=== PATIENT | male | born 1975 | race Caucasian/White ===

== ENCOUNTER 2016-05-03 07:58 | Emergency (ER) | payer SELFPAY ==
--- NOTE | ~2016-05-03 | ER ---
PATIENT'S NAME: [facility]U [facility] AGE: 40 Y [address] ROOM: [place] [address] LOCATION: [facility] ADMIT DATE: 05/03/2016 ER/Outpatient Report DISCHARGE DATE: 05/03/2016 FAMILY PHYSICIAN: PHYSICIAN, NO ATTENDING PHYSICIAN: Valentino Lara Time of Arrival: 0758 hours. Time of Evaluation: 0810 hours. CHIEF COMPLAINT: Left lower quadrant abdominal pain. HISTORY OF PRESENT ILLNESS: The patient is a 40-year-old male, who presents to the emergency department today with chief complaint of left lower quadrant abdominal pain. He reports this started 2 days prior to arrival. He reports he does have a history of diverticulitis and this feels similar to his previous episodes. Denies any fevers or chills. Does have some nausea, no vomiting. He does have a little bit of diarrhea. No blood in his stool. No dark tarry stools. No urinary frequency, urgency, or painful urination. It is a sharp-type pain and currently mild in severity. PAST MEDICAL HISTORY: Diverticulosis. PAST SURGICAL HISTORY: Appendectomy and hernia. SOCIAL HISTORY: The patient smokes half pack per day. Drinks alcohol occasionally. Denies any illicit drug use. ALLERGIES: NO KNOWN DRUG ALLERGIES. MEDICATIONS: None. REVIEW OF SYSTEMS: All systems are reviewed by myself and are negative with the exception of those discussed in HPI and past medical history. PHYSICAL EXAMINATION: VITAL SIGNS: Weight 83.5 kg, blood pressure 145/94, pulse 96, respiratory rate 20, temperature 97, oxygen saturation 99% on room air. PATIENT'S NAME: [facility]U [facility] AGE: 40 Y [address] ROOM: [place] [address] LOCATION: [facility] ADMIT DATE: 05/03/2016 ER/Outpatient Report DISCHARGE DATE: 05/03/2016 FAMILY PHYSICIAN: PHYSICIAN, NO ATTENDING PHYSICIAN: Valentino Lara GENERAL: The patient is a 40-year-old male, who appears his stated age, in no acute distress at this time. HEENT: Head: Normocephalic, atraumatic. Pupils are equal, round, and reactive to light. Mucous membranes are moist. NECK: Supple. There is no nuchal rigidity. CARDIOVASCULAR: Regular rate and rhythm. No murmurs, rubs, or gallops. LUNGS: Clear to auscultation bilaterally. No wheezes, rales, or rhonchi. ABDOMEN: Soft. Mild left lower quadrant tenderness to palpation. There is no rebound, rigidity, or guarding. Positive bowel sounds. MUSCULOSKELETAL: The patient moves all 4 extremities. SKIN: Warm and dry. There is no rashes or lesions noted. LABORATORY DATA AND X-RAYS: CBC is normal. CMP is normal. LFTs are normal. Lactate is normal. IMPRESSION: 1. Acute left lower quadrant abdominal pain, suspect uncomplicated diverticulitis. 2. Initial visit. EMERGENCY DEPARTMENT COURSE: The patient was brought back to the examination room. Seen evaluated by myself. An IV is established. Laboratory analysis is obtained as described above. The patient was given 30 mg of Toradol IV as well as 4 mg of Zofran IV. I have discussed results with the patient. His laboratory analysis is unremarkable. I have reassessed the patient's abdominal exam. He continues to have some mild left lower quadrant abdominal pain, but has a nonsurgical abdominal exam at this time. This is consistent with uncomplicated diverticulitis at this time. I have recommended we place the patient on ciprofloxacin and Flagyl. These prescriptions have been written. Recommended repeat abdominal exam in 48 hours for recheck. I have discussed with him the importance to obtain a colonoscopy. He does report he will discuss with the [facility] today to see if they can help assist him with this. I have given him the number for the kiln burner. I have discussed return-to- care instructions including worsening symptoms or any other concerns to return to the emergency department as soon as possible. The patient is agreeable without further questions at this time. DISPOSITION: The patient discharged home in good condition. VALENTINO LARA DO PATIENT'S NAME: [facility]U [facility] AGE: 40 Y [address] ROOM: [place], [place] [address] LOCATION: ED ADMIT DATE: 05/03/2016 ER/Outpatient Report DISCHARGE DATE: 05/03/2016 FAMILY PHYSICIAN: PHYSICIAN, NO ATTENDING PHYSICIAN: Valentino Lara/adebayol /[id number] d: 05/03/16 1000 t: 05/05/16 0822, OUTPATIENT REPORT
[2016-05-03 08:33] LABS: BASOPHIL # 0.1 K/uL (0.0-0.2); BASOPHIL % 0.8 %; EOSINOPHIL # 0.5 K/uL (0.0-0.5); EOSINOPHIL % 7.4 %; HEMATOCRIT 44.4 % (37.0-53.0); HEMOGLOBIN 14.8 g/dL (12.0-17.0); IMMATURE GRANULOCYTE % 0.3 %; LYMPHOCYTE # 2.1 K/uL (0.8-4.0); LYMPHOCYTE % 33.1 %; MCH 30.3 pg (27.0-34.0); MCHC 33.3 gm/dL (32.0-36.5); MONOCYTE # 0.6 K/uL (0.0-1.0); MONOCYTE % 9.3 %; MPV 9.6 fl (9.4-12.4); NEUTROPHIL # (ANC) 3.1 K/uL (1.4-9.0); NEUTROPHIL % 49.1 %; NRBC % 0 /100WBC (0-0.00); PLATELET COUNT 239 K/uL (150-450); RBC 4.88 M/uL (4.00-6.00); RDW-CV 11.7 % (11.9-14.6); WBC 6.3 K/uL (4.0-11.0)
[2016-05-03 08:57] LABS: ALBUMIN 3.7 gm/dL (3.5-5.0); ALK PHOS 56 IU/L (33-138); ALT 21 IU/L (12-78); AST 17 IU/L (10-40); BLOOD UREA NITROGEN 13 mg/dL (6-24); CALCIUM 8.5 mg/dL (8.5-10.5); CHLORIDE 109 mMol/L (96-110); CO2 27 mMol/L (22-32); CREATININE 0.9 mg/dL (0.6-1.3); ESTIMATED GFR (MDRD EQUATION) > 60; SODIUM 144 mMol/L (135-145); TOTAL BILIRUBIN 0.4 mg/dL (0.0-1.5); TOTAL PROTEIN 6.9 g/dL (6.0-8.4)
[2016-05-03 09:09] LABS: BILIRUBIN URINE NEGATIVE (NEGATIVE); BLOOD URINE NEGATIVE /UL (NEGATIVE); COLOR URINE YELLOW (YELLOW); GLUCOSE URINE NEGATIVE (NEGATIVE); KETONE URINE NEGATIVE (NEGATIVE); LEUKOCYTES URINE NEGATIVE /UL (NEGATIVE); NITRITE URINE NEGATIVE (NEGATIVE); PROTEIN URINE NEGATIVE (NEGATIVE); TURBIDITY URINE CLEAR (CLEAR); UROBILINOGEN URINE NORMAL (NORMAL)
[2016-06-09] MEDS ORDERED: BENEFIBER1 EAC1 PO (16:03)
[2016-06-09] MEDS ORDERED: TYLENOL EXTRA500 MG PO (16:04)
== END 2016-05-03 09:20 | disposition disaster alternative care site (69) ==
LOC: GMED 07:58
PROVIDERS: Emergency Medicine
DX: R10.32 Left lower quadrant pain (principal); F17.210 Nicotine dependence, cigarettes, uncomplicated; Z90.89 Acquired absence of other organs
CPT/HCPCS: J1885; J2405; J7030

== ENCOUNTER → 2016-06-13 | Day surgery (SDC) | payer SELFPAY ==
[~2016-06-13] VITALS: Ht 182.9 cm; Wt 79.4 kg
[~2016-06-13] MED LIST: BENEFIBER1 EAC1 PO; TYLENOL EXTRA500 MG PO
--- NOTE | ~2016-06-13 | OR ---
PATIENT'S NAME: [facility]U [facility] AGE: 40 Y [address] ROOM: [place], [place] [address] LOCATION: [facility] ADMIT DATE: 06/13/2016 OR/Procedure Report DISCHARGE DATE: FAMILY PHYSICIAN: PHYSICIAN, NO ATTENDING PHYSICIAN: KAREN RODRIGUEZ SURGEON: Kristin Timmons MD FREEDOM OF INFORMATION OFFICER: DATE OF PROCEDURE: 06/13/2016 PROCEDURE PERFORMED: Colonoscopy with polypectomy. INDICATION: Abnormal CT scan. MEDICATIONS: Please see anesthesiology record for details. CONSENT: The risks/benefits/alternatives were discussed, and the patient or his power of threading machine tender expressed understanding and agreed to proceed. Informed consent was obtained and placed on the chart. Time-out was completed prior to starting the procedure. DESCRIPTION OF PROCEDURE: The patient was placed in the left lateral decubitus position. One lead EKG monitoring was used along with intermittent blood pressure monitoring and pulse oximetry. The above medications were given and titrated to response. Once adequate sedation was completed, rectal exam was performed. The colonoscope was then passed through the rectum, into the sigmoid colon. The scope was then passed through the descending, transverse, and ascending colon. The scope was then passed into the cecum. The cecum was identified by the ileocecal valve and appendiceal orifice. The scope was then withdrawn. On withdrawal, the mucosa of the colon was examined. In the rectum, retroflexion was completed. The scope was then withdrawn from the patient. The patient tolerated the procedure well. There were no complications. SUMMARY OF FINDINGS: 1. A 1 cm flat sessile polyp in the descending colon, removed using snare with cautery in one piece. 2. Diverticulosis, mild, mainly in the sigmoid colon. 3. There was a 2 cm patch of mild erythema in the sigmoid colon. This appeared to be a resolving colitis. Therefore, no biopsies were taken. 4. Internal hemorrhoids, large, nonbleeding. 5. The terminal ileum was intubated and appeared normal. ASSESSMENT AND PLAN: Abnormal CT: The patient has no evidence of ulcerative colitis, Crohn disease, or any significant colitis. There were a few scattered diverticula in the sigmoid colon, this was likely resolving PATIENT'S NAME: MALU [facility] AGE: 40 Y [address] ROOM: [place], [place] [address] LOCATION: [facility] ADMIT DATE: 06/13/2016 OR/Procedure Report DISCHARGE DATE: FAMILY PHYSICIAN: IRON TREADWELL ATTENDING PHYSICIAN: KAREN RODRIGUEZ diverticular-associated colitis. Given the patient's polyp size, I suspect this will return as a tubular adenoma, and I would recommend a repeat exam in 3 years. J MD YULY OGLESBY/klever /[id number] d: 06/13/16 1230 t: 06/15/16 1358, OPERATIVE SUMMARY
--- NOTE | ~2016-06-13 | OR ---
PATIENT'S NAME: YONG [facility] AGE: 40 Y [address] ROOM: [place] [address] LOCATION: [facility] ADMIT DATE: 06/13/2016 OR/Procedure Report DISCHARGE DATE: FAMILY PHYSICIAN: PHYSICIAN, NO ATTENDING PHYSICIAN: KAREN RODRIGUEZ SURGEON: Kristin Ponce MD SOCIAL SERVICE COORDINATOR: DATE OF PROCEDURE: 06/13/2016 PROCEDURE PERFORMED: Esophagogastroduodenoscopy. INDICATION: Abdominal pain. MEDICATIONS: Please see anesthesiology record for details. CONSENT: The risks/benefits/alternatives were discussed, and the patient or his power of litigation attorney expressed understanding and agreed to proceed. Informed consent was obtained and placed in the chart. Time-out was completed prior to starting the procedure. DESCRIPTION OF PROCEDURE: The patient was placed in the left lateral decubitus position. One-lead EKG monitoring was used along with intermittent blood pressure monitoring and pulse oximetry. Bite block was placed in the patient's mouth. The above medications were given and titrated to response. Once adequate sedation was completed, the endoscope was passed through the patient's mouth into the posterior oropharynx. The endoscope was then passed into the esophagus, stomach, and duodenal bulb. The duodenum was examined through the third portion. The endoscope was then withdrawn into the stomach. In the stomach, retroflexion was completed. The scope was then straightened and withdrawn from the patient. The patient tolerated the procedure well. There were no complications. SUMMARY OF FINDINGS: 1. Normal esophagus. 2. Mild gastritis, status post biopsies to evaluate for H. pylori. 3. Normal duodenum, status post biopsies to rule out celiac disease. ASSESSMENT AND PLAN: Abdominal pain: Nothing seen on esophagogastroduodenoscopy to explain the patient's abdominal pain. We will proceed with colonoscopy. Kristin PONCE MD PATIENT'S NAME: YONG [facility] AGE: 40 Y [address] ROOM: [place] [address] LOCATION: [facility] ADMIT DATE: 06/13/2016 OR/Procedure Report DISCHARGE DATE: FAMILY PHYSICIAN: PHYSICIAN, NO ATTENDING PHYSICIAN: KAREN RODRIGUEZ/adebayol /[id number] d: 06/13/16 1233 t: 06/15/16 1401, OPERATIVE SUMMARY
== END | disposition disaster alternative care site (69) ==
LOC: GPOC 06-09 10:00 → GEND 08:53
PROC: 0DBM8ZZ Excision of Descending Colon, Via Natural or Artificial Opening Endoscopic (ICD-10-PCS; principal; 2016-06-13)
PROC: 0DB88ZX Excision of Small Intestine, Via Natural or Artificial Opening Endoscopic, Diagnostic (ICD-10-PCS; 2016-06-13)
PROC: 0DB68ZX Excision of Stomach, Via Natural or Artificial Opening Endoscopic, Diagnostic (ICD-10-PCS; 2016-06-13)
DX: K63.5 Polyp of colon (principal); K29.50 Unspecified chronic gastritis without bleeding; K31.89 Other diseases of stomach and duodenum; K21.9 Gastro-esophageal reflux disease without esophagitis; F17.210 Nicotine dependence, cigarettes, uncomplicated; Z90.49 Acquired absence of other specified parts of digestive tract; Z98.890 Other specified postprocedural states
CPT/HCPCS: J7030